=== PATIENT | male | born 1945 | race Caucasian/White ===

== ENCOUNTER 2021-02-22 09:26 | Day surgery (SDC) | payer OTHER ==
[~2021-02-22] VITALS: Ht 172.7 cm; Wt 114.5 kg
[~2021-02-22 09:26] MED LIST: ATOR40TA PO; Aspir 8181 MG PO; Celexa10 MG PO; GLIP5 PO; GLUCOPHAGE1000 M1 PO; LISI20 PO; MULVITA PO; OZEMPIC0.25 MG/0. SC; VIT1CAPS12 PO
[2021-02-22] MEDS ORDERED: WEGOVY0.5 MG/0.5 SC (12:23)
--- NOTE | 2021-02-22 16:44 | NUR ---
SYED RETURNS FROM THE [facility] WITH RIGHT GROIN ANGIOSEAL CLOSURE. DR. HOYOS AT THE BEDSIDE AND SPOKE WITH THE PATIENT AND HIS . SBAR RECEIVED FROM RT KYLE AND ABISAI DSOUZA RN. LIBORIO PLACED ON THE MONITOR AND CALL LIGHT IN REACH. DOPPLER PULSE LEFT DP NOTED. ALL QUESTIONS ANSWERED BY FROM THE PATIENT AND .
--- NOTE | 2021-02-22 17:19 | NUR ---
assumed care of patient in recovery. Patient A&O. at bedside. Right groin site soft and nontender. No hematoma, no bleeding. Dressing D&I.
--- NOTE | 2021-02-22 17:38 | NUR ---
PLAVIX 75 MG PO GIVEN PER dR MCKEON REQUEST.
[2021-02-22] MEDS ORDERED: CLOP75 PO (17:43)
[2021-02-22] MEDS ORDERED: XARELTO20 MG PO (17:51)
--- NOTE | 2021-02-22 19:02 | NUR ---
HOB UP 30 DEGREES. SITE STABLE
--- NOTE | 2021-02-22 19:41 | NUR ---
PATIENT UP TO REST ROOM. RIGHT GROIN SITE REMAINS SOFT AND NONTENDER. DRESSING D&I. NO HEMATOMA, NO BLEEDING. PATIENT AND VERBALIZED UNDERSTANDING OF DISCHARGE INSTRUCTIONS AND PRECAUTIONS. BOTH VERBALIZED UNDERSTANDING OF MEDICATIONS. NO FURTHER QUESTIONS. IV SITE DCED WITH CATHETER IN TACT. PATIENT TAKEN BY WHEEL CHAIR BY TEJA GOODWIN TO CAR. IS DRIVING.
== END 2021-02-22 18:30 | disposition home or self-care (01) ==
LOC: MHTC 09:26
DX: E11.51 Type 2 diabetes mellitus with diabetic peripheral angiopathy without gangrene (principal); I70.223 Atherosclerosis of native arteries of extremities with rest pain, bilateral legs; I87.2 Venous insufficiency (chronic) (peripheral); E78.5 Hyperlipidemia, unspecified; I10 Essential (primary) hypertension; Z87.891 Personal history of nicotine dependence
CPT/HCPCS: 37227; 37229; 37232; 75625; 75716; 75774; 76937; 99152; 99153; A9270; C1714; C1725; C1760; C1769; C1874; C1887; C1894; C2623; J1644; J2250; J2997; J3010; J7030; J7050; Q9967